=== PATIENT | male | born 1990 | race American Indian/Alaskan Native ===

== ENCOUNTER 2019-03-31 23:57 | Emergency (ER) | payer MEDICAID, OTHER ==
[2019-04-01 00:10] VITALS: BP 139/71
--- NOTE | 2019-04-01 00:27 | XRay Report ---
PROCEDURE: XR CHEST 1V AP TECHNIQUE: Chest radiograph single view. HISTORY: Chest Pain COMPARISONS: None . FINDINGS: Heart: Normal. Mediastinum/Vessels: Normal. Lungs/Pleural space: Normal. Bony thorax: No acute osseous abnormality. Life support devices: None. IMPRESSION: No acute cardiopulmonary abnormality. This document is electronically signed by Alden Peña MD., April 01 2019 01:25:16 AM ET
== END 2019-04-01 04:25 | disposition left against medical advice (07) ==
LOC: ED 23:57
DX: R07.89 Other chest pain (principal); Z53.21 Procedure and treatment not carried out due to patient leaving prior to being seen by health care provider
CPT/HCPCS: 71045; 93005; 93010

== ENCOUNTER 2021-06-16 18:33 | Emergency (ER) | payer MEDICAID, OTHER ==
[2021-06-16 23:44] VITALS: BP 135/78
--- NOTE | 2021-06-17 00:18 | XRay Report ---
LEFT ELBOW 3 VIEW(S) INDICATION / CLINICAL INFORMATION: left elbow swelling COMPARISON: None available. FINDINGS: BONES / JOINT(S): No acute fracture or subluxation. No significant arthritis. SOFT TISSUES: No significant abnormality. ADDITIONAL FINDINGS: None. Signer Name: Juliano Wilson MD Signed: 06/17/2021 12:14 AM Workstation Name: [id number]
[2021-06-17] MEDS ORDERED: predniSONE 20 MG TAB PO ONE (01:02)
[2021-06-17] MEDS ORDERED: diphenhydrAMINE 25 MG CAP PO ONE (01:02)
[2021-06-17] MEDS ORDERED: IBUPROFEN 800 MG TAB PO ONE (01:02)
--- NOTE | 2021-06-17 01:06 | Emergency Department Report ---
ED General Adult HPI - General Chief complaint: Extremity Injury, Upper Stated complaint: ARM FRACTURE Time Seen by Provider: 06/17/21 00:59 Source: patient Mode of arrival: Ambulatory Limitations: No Limitations - History of Present Illness Initial comments: Patient 30-year-old male who presents for left posterior elbow pain status post ground-level fall yesterday. Patient states he landed in bushes. Causing a rash to his upper arm. Also complains of left elbow pain and swelling. Pain described as 6/10 sharp achy, there is no numbness no paralysis no obvious deformity. Patient states pain is exacerbated by attempted movement. Pain is relieved by splinting. Rash multiple bullae no erythema no drainage , patient does not endorse pruritus - Related Data Previous Rx's Medication Instructions Recorded Last Taken Type Ibuprofen [Motrin 800 MG tab] 800 mg PO Q8HR PRN #30 tablet 06/17/21 Unknown Rx diphenhydrAMINE [Benadryl CAP] 25 mg PO Q8HR PRN #15 capsule 06/17/21 Unknown Rx predniSONE [Deltasone] 20 mg PO QDAY 5 Days #5 tab 06/17/21 Unknown Rx Allergies Allergy/AdvReac Type Severity Reaction Status Date / Time acetaminophen [From Tylenol] Allergy Vomiting Verified 04/01/19 00:10 ED Review of Systems ROS: Stated complaint: ARM FRACTURE Other details as noted in HPI Constitutional: denies: chills, fever Eyes: denies: eye pain, eye discharge, vision change ENT: denies: ear pain, throat pain Respiratory: denies: cough, shortness of breath, wheezing Cardiovascular: denies: chest pain, palpitations Endocrine: no symptoms reported Gastrointestinal: denies: abdominal pain, nausea, diarrhea Genitourinary: denies: urgency, dysuria Musculoskeletal: joint swelling (left elbow) Skin: rash (left arm ). denies: lesions Neurological: denies: headache, weakness, paresthesias, vertigo Psychiatric: denies: anxiety, depression Hematological/Lymphatic: denies: easy bleeding, easy bruising ED Past Medical Hx - Past Medical History Previous Medical History?: Yes Hx Asthma: Yes - Surgical History Past Surgical History?: Yes Additional Surgical History: right eye - Social History Smoking Status: Current Every Day Smoker Substance Use Type: Marijuana - Medications Home Medications: Home Medications Medication Instructions Recorded Confirmed Last Taken Type Ibuprofen [Motrin 800 MG tab] 800 mg PO Q8HR PRN #30 tablet 06/17/21 Unknown Rx diphenhydrAMINE [Benadryl CAP] 25 mg PO Q8HR PRN #15 capsule 06/17/21 Unknown Rx predniSONE [Deltasone] 20 mg PO QDAY 5 Days #5 tab 06/17/21 Unknown Rx ED Physical Exam - General Limitations: No Limitations General appearance: alert - Head Head exam: Present: normocephalic, normal inspection - Eye Eye exam: Present: normal appearance, EOMI Pupils: Present: normal accommodation - ENT ENT exam: Present: mucous membranes moist - Neck Neck exam: Present: normal inspection, full ROM. Absent: tenderness - Respiratory Respiratory exam: Present: normal lung sounds bilaterally. Absent: respiratory distress, wheezes, stridor, chest wall tenderness - Cardiovascular Cardiovascular Exam: Present: regular rate, normal rhythm, normal heart sounds. Absent: systolic murmur, diastolic murmur, rubs, gallop - GI/Abdominal GI/Abdominal exam: Present: soft, normal bowel sounds. Absent: distended, tenderness - Rectal Rectal exam: Present: deferred - Extremities Exam Extremities exam: Present: tenderness, joint swelling - Expanded Upper Extremity Exam Left Elbow exam: Present: tenderness, swelling, pain w/ pronation/supination, tenderness over radial head. Absent: abrasion, laceration, ecchymosis, deformity, crepidus, dislocation, erythema, effusion Forearm Wrist exam: Present: full ROM. Absent: tenderness Hand Wrist exam: Present: full ROM. Absent: tenderness Neuro motor exam: Present: wrist extension intact, thumb opposition intact, thumb IP flexion intact, thumb adduction intact, fingers 2-5 abduction intact Neurosensory exam: Present: radial nerve intact - Back Exam Back exam: Present: normal inspection, full ROM. Absent: paraspinal tenderness, vertebral tenderness - Neurological Exam Neurological exam: Present: alert, oriented X3, CN II-XII intact, normal gait, reflexes normal. Absent: motor sensory deficit - Expanded Neurological Exam Expanded Patient oriented to: Present: person, place, time Speech: Present: fluid speech Sensory exam: Upper Extremity Light Touch: Normal, Upper Extremity Pin Prick: Normal, Upper Extremity Temperature: Normal Motor strength exam: RUE: 5, LUE: 5 Best Eye Response (Haley): (4) open spontaneously Best Motor Response (Haley): (6) obeys commands Best Verbal Response (Kenyon): (5) oriented Kenyon Total: 15 - Psychiatric Psychiatric exam: Present: normal affect, normal mood - Skin Skin exam: Present: warm, dry, intact, normal color, urticaria. Absent: rash, erythema (rash raised smooth bullae, no drainage no fever no open wounds ), abrasion, ecchymosis ED Course Vital Signs 06/16/21 23:35 Temperature 98.6 F Pulse Rate 70 Respiratory 20 Rate Blood Pressure 135/78 O2 Sat by Pulse 95 Oximetry ED Medical Decision Making - Radiology Data Radiology results: report reviewed, image reviewed LEFT ELBOW 3 VIEW(S) INDICATION / CLINICAL INFORMATION: left elbow swelling COMPARISON: None available. FINDINGS: BONES / JOINT(S): No acute fracture or subluxation. No significant arthritis. SOFT TISSUES: No significant abnormality. ADDITIONAL FINDINGS: None. Signer Name: Juliano Wilson MD Signed: 06/17/2021 12:14 AM Workstation Name: [id number] Transcribed By: TL Dictated By: Juliano Wilson MD Electronically Authenticated By: Juliano Wilson MD Signed Date/Time: 06/17/2113 DD/ TD/TT: - Medical Decision Making Left elbow x-ray no abnormality. There is mild soft tissue swelling. There is mild proximal radial head tenderness to deep palpation distal pulses are intact process safety specialist are equal SOLUTIONS ANALYST less than 3 bilaterally, plan NSAIDs, Robert wrap rice therapy, forearm elbow exercises, follow-up primary care doctor in 2 to 3 days. Patient verbalized agreement and understanding with discharge plan. Patient will be DC'd home in stable condition at this time. Critical care attestation.: If time is entered above; I have spent that time in minutes in the direct care of this critically ill patient, excluding procedure time. ED Disposition Clinical Impression: Allergic dermatitis Sprain of elbow, left Qualifiers: Encounter type: initial encounter Qualified Code(s): S53.402A - Unspecified sprain of left elbow, initial encounter Disposition: HOME / SELF CARE / HOMELESS Is pt being admited?: No Does the pt Need Aspirin: No Condition: Stable Instructions: Contact Dermatitis, [id number], Elbow Sprain, Elastic Bandage and RICE Therapy Additional Instructions: Take medications as prescribed, RICE Therapy as directed, follow up with your doctor in 2-3 days, return to emergency if symptoms worsen. Prescriptions: diphenhydrAMINE [Benadryl CAP] 25 mg PO Q8HR PRN #15 capsule PRN Reason: Itching predniSONE [Deltasone] 20 mg PO QDAY 5 Days #5 tab Ibuprofen [Motrin 800 MG tab] 800 mg PO Q8HR PRN #30 tablet PRN Reason: pain Referrals: MARKEL MUHAMMAD MD [Staff Physician] - 3-5 Days [facility] [Provider Group] - 3-5 Days Forms: Work/School Release Form(ED) Time of Disposition: 01:18
== END 2021-06-17 01:40 | disposition home or self-care (01) ==
LOC: ED 18:33
DX: S53.402A Unspecified sprain of left elbow, initial encounter (principal); L23.9 Allergic contact dermatitis, unspecified cause; F17.200 Nicotine dependence, unspecified, uncomplicated; F12.90 Cannabis use, unspecified, uncomplicated; J45.909 Unspecified asthma, uncomplicated; Z79.899 Other long term (current) drug therapy; Z88.8 Allergy status to other drugs, medicaments and biological substances; Z98.890 Other specified postprocedural states; W17.89XA Other fall from one level to another, initial encounter; Y93.89 Activity, other specified; Y92.89 Other specified places as the place of occurrence of the external cause; Y99.8 Other external cause status
CPT/HCPCS: 73080; 99283; J7512